=== PATIENT | male | born 2000 | race Caucasian/White ===

== ENCOUNTER 2019-09-03 21:53 | Emergency (ER) | payer MEDICAID ==
[~2019-09-03] VITALS: Ht 157.5 cm; Wt 59.0 kg
[2019-09-03 22:24] VITALS: BP 141/83
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
[2019-09-03] MEDS ORDERED: MORPHINE SULFATE INJ 2 MG/ML DISP.SYRIN IM ONE (23:00)
[2019-09-03] MEDS ORDERED: SILVER SULFADIAZINE CREAM 25 GM TUBE TP ONE (23:00)
--- NOTE | 2019-09-03 23:00 | NUR ---
DR MONROY AT BEDSIDE
[2019-09-03] MEDS ORDERED: SILVER SULFADIAZINE CREAM 25 GM TUBE ONE (23:03)
[2019-09-03] MEDS ORDERED: MORPHINE SULFATE INJ 4 MG/ML DISP.SYRIN ONE (23:03)
[2019-09-03] MEDS ORDERED: ONDANSETRON 4 MG TAB.RAPDIS ONE (23:08)
--- NOTE | 2019-09-03 23:36 | NUR ---
Patient discharged to home in stable condition. Written and verbal after care instructions given. Patient verbalizes understanding of instruction.pt. ambulatory with a steady gait
== END 2019-09-03 23:36 | disposition home or self-care (01) ==
LOC: ER 21:57
DX: T25.221A Burn of second degree of right foot, initial encounter (principal); T24.021A Burn of unspecified degree of right knee, initial encounter; X12.XXXA Contact with other hot fluids, initial encounter; Y93.89 Activity, other specified; Y92.89 Other specified places as the place of occurrence of the external cause; Y99.8 Other external cause status
CPT/HCPCS: 96372; 99283; J2270; Q0162